=== PATIENT | male | born 1950 ===

== ENCOUNTER 2023-10-08 10:04 | Inpatient (IN) | payer MEDICARE, OTHER ==
[2023-10-08] MEDS: Sodium Chloride 0.9% 1,000 ML IV ONE (10:49)
[2023-10-08 10:58] LABS: BASOPHILS ABSOLUTE AUTO 0.05 K/uL (0.00-0.10); BASOPHILS PERCENT AUTO 0.4 % (0.1-1.3); EOSINOPHILS ABSOLUTE AUTO 0.04 K/uL (0.00-0.40); EOSINOPHILS PERCENT AUTO 0.3 % (0.0-5.4); HEMATOCRIT 46.6 % (38.4-49.7); HEMOGLOBIN 16.4 g/dL (12.9-16.9); IMMATURE GRAN ABSOLUTE AUTO 0.04 K/uL (0.00-0.23); IMMATURE GRAN PERCENT AUTO 0.3 % (0.0-0.7); LYMPHOCYTES ABSOLUTE AUTO 0.58 K/uL (0.8-3.3); LYMPHOCYTES PERCENT AUTO 4.1 % (11.4-47.7); MEAN CORPUSCULAR HEMOGLOBIN 32.9 pg (31.6-35.5); MEAN CORPUSCULAR HGB CONC 35.2 g/dL (31.6-35.5); MEAN CORPUSCULAR VOLUME 93.6 fL (81.4-99.0); MONOCYTES ABSOLUTE AUTO 0.66 K/uL (0.20-0.90); MONOCYTES PERCENT AUTO 4.7 % (3.3-12.6); NEUTROPHILS ABSOLUTE AUTO 12.68 K/uL (1.0-7.6); NEUTROPHILS PERCENT AUTO 90.2 % (40.0-78.1); PLATELET COUNT,PLT 255 K/uL (130-375); RED BLOOD CELL COUNT 4.98 M/uL (4.14-5.76); WHITE BLOOD CELL COUNT,WBC 14.1 K/uL (3.2-11.0)
[2023-10-08 11:16] LABS: A/G RATIO 1.1 (1.2-2.2); ALANINE AMINOTRANSFERASE,ALT 21 U/L (12-78); ALBUMIN 3.9 g/dL (3.4-5.0); ALKALINE PHOSPHATASE 47 U/L (46-116); ASPARTATE AMNIOTRANSFERASE,AST 17 U/L (15-37); BILIRUBIN TOTAL 0.9 mg/dL (0.2-1.0); BLOOD UREA NITROGEN,BUN 20 mg/dL (7-18); C-REACTIVE PROTEIN <0.50 mg/dL (<0.50); CALCIUM 9.9 mg/dL (8.5-10.1); CARBON DIOXIDE,CO2 23 mmol/L (21-32); CHLORIDE,CL 102 mmol/L (100-108); CREATININE 1.2 mg/dL (0.8-1.3); EST CRCL DRUG DOSING (CG) 57.45 mL/min; ESTIMATED GFR 64 mL/min (>60); GLUCOSE RANDOM 202 mg/dL (74-106); POTASSIUM,K 3.4 mmol/L (3.6-5.2); PROTEIN TOTAL,TP 7.6 g/dL (6.4-8.2); SODIUM,NA 138 mmol/L (140-148)
[2023-10-08 11:17] LABS: ANION GAP 16.4 mmol/L (5.0-14.0)
[2023-10-08] MEDS: Piperacillin/Tazobactam 3.375 GM in Sodium Chloride 0.9% 50 ML IV SCH ×2 (11:54→19:49)
[2023-10-08] MEDS: Sodium Chloride 0.9% 1,000 ML IV SCH (15:05)
[2023-10-08 15:26] LABS: APPEARANCE,URINE CLOUDY (CLEAR); BILIRUBIN,URINE NEGATIVE (NEGATIVE); COLOR,URINE YELLOW (YELLOW); GLUCOSE,URINE NEGATIVE (NEGATIVE); KETONES,URINE TRACE mg/dL (NEGATIVE); LEUKOCYTE ESTERASE,URINE NEGATIVE (NEGATIVE); NITRITE,URINE NEGATIVE (NEGATIVE); OCCULT BLOOD,URINE NEGATIVE (NEGATIVE); PH,URINE 5.5 (5.0-8.0); PROTEIN,URINE 30 mg/dL (NEGATIVE); UROBILINOGEN,URINE 0.2 EU/dL (0.2-1.0)
[2023-10-08 15:34] LABS: AMORPHOUS SEDIMENT,URINE NOT SEEN; BACTERIA,URINE NOT SEEN; EPITHELIAL CELLS,URINE RARE; MUCUS,URINE RARE; RBC,URINE 0-5 (0-5); WBC,URINE 0-5 (0-5)
[2023-10-08] MEDS ORDERED: Ondansetron 4 MG Tab.DIS PO PRN (17:05)
[2023-10-08] MEDS ORDERED: Acetaminophen/oxyCODONE 325-5 MG Tab PO PRN (17:05)
[2023-10-08] MEDS ORDERED: Ondansetron 4 MG/2 ML SDV IV PRN (17:05)
[2023-10-08] MEDS ORDERED: Zolpidem 5 MG Tab PO PRN (17:05)
[2023-10-08] MEDS ORDERED: Acetaminophen 325 MG Tab PO PRN (17:05)
[2023-10-08] MEDS ORDERED: Glucagon,Human Recombinant 1 MG Vial IM PRN (17:15)
[2023-10-08] MEDS ORDERED: 50% Dextrose in Water 50 ML Syringe IVPUSH PRN (17:15)
[2023-10-08] MEDS: Pantoprazole 40 MG Vial IVPUSH SCH (19:20)
[2023-10-08] MEDS: Potassium Chloride 20 MEQ in Premix Bag 1 BAG IV ONE (19:42)
[2023-10-08] MEDS: Potassium Chloride 10 MEQ in Premix Bag 1 BAG IV SCH (19:50)
[2023-10-08] MEDS ORDERED: Potassium Chloride 10 MEQ in Premix Bag 2 BAG IV ONE (20:00)
[2023-10-08] MEDS: Insulin Lispro 100 Unit/ML 3 ML KwikPen SUBCUT SCH (21:00)
[2023-10-08] MEDS: Piperacillin/Tazobactam 4.5 GM in Sodium Chloride 0.9% 100 ML IV SCH (23:44)
[2023-10-09 05:27] LABS: HEMATOCRIT 36.9 % (38.4-49.7); MEAN CORPUSCULAR HEMOGLOBIN 32.7 pg (31.6-35.5); MEAN CORPUSCULAR HGB CONC 35.2 g/dL (31.6-35.5); MEAN CORPUSCULAR VOLUME 92.9 fL (81.4-99.0); RED BLOOD CELL COUNT 3.97 M/uL (4.14-5.76); WHITE BLOOD CELL COUNT,WBC 10.8 K/uL (3.2-11.0)
[2023-10-09 05:52] LABS: CALCIUM 8.1 mg/dL (8.5-10.1); EST CRCL DRUG DOSING (CG) 68.94 mL/min; MAGNESIUM 1.3 mg/dL (1.8-2.4); PHOSPHORUS 2.6 mg/dL (2.5-4.9); POTASSIUM,K 3.4 mmol/L (3.6-5.2)
[2023-10-09 06:05] LABS: ANION GAP 14.4 mmol/L (5.0-14.0)
[2023-10-09] MEDS: Piperacillin/Tazobactam/Dext 4.5 GM in Premix Bag 1 BAG IV SCH (08:32)
[2023-10-09] MEDS: Enoxaparin 40 MG/0.4 ML Syringe SUBCUT SCH (08:32)
[2023-10-09] MEDS: Magnesium Oxide 400 MG Tab PO SCH (10:36)
[2023-10-09] MEDS: Potassium Chloride 20 MEQ Tab.ER PO ONE (10:36)
[2023-10-09] MEDS ORDERED: Pantoprazole 40 MG Tab.CR PO SCH (16:30)
[2023-10-12 18:58] LABS: OVA AND PARASITE,FECAL INTERP Negative (Negative)
== END 2023-10-09 15:20 | disposition home or self-care (01) | DRG 392 ==
LOC: JP.ED 10:04 → JP.MS 17:05
PROVIDERS: ADMIT Internal Medicine; ATTEND Internal Medicine
DX: K52.9 Noninfective gastroenteritis and colitis, unspecified (principal); E87.1 Hypo-osmolality and hyponatremia; A05.9 Bacterial foodborne intoxication, unspecified; E86.0 Dehydration; E87.6 Hypokalemia; E11.9 Type 2 diabetes mellitus without complications; I95.9 Hypotension, unspecified; I10 Essential (primary) hypertension; E78.00 Pure hypercholesterolemia, unspecified; Z79.84 Long term (current) use of oral hypoglycemic drugs; Z79.899 Other long term (current) drug therapy
CPT/HCPCS: 36415; 71045; 71045-26; 74176; 80048; 80053; 81001; 82947; 83605; 83690; 83735; 84100; 85025; 85027; 85379; 86140; 87040; 87046; 87177; 87209; 87899; 96361; 96365; 96366; 96367; 99222; 99239; 99285; 99285-25; A9270-GY; C9113; J1650; J1815; J2543; J3370; J3480; J3490; J7030; J7050